=== PATIENT | male | born 1985 | race African-American/Black ===

== ENCOUNTER 2024-01-10 15:12 | Emergency (ER) | payer MEDICAID ==
[~2024-01-10] VITALS: Ht 172.7 cm; Wt 70.0 kg
[2024-01-10 17:04] LABS: *AMPHETAMINES SCREEN URINE NEGATIVE (NEGATIVE); *BARBITURATES SCREEN URINE NEGATIVE (NEGATIVE); *BENZODIAZEPINES SCREEN URINE NEGATIVE (NEGATIVE); *COCAINE SCREEN URINE PRESUMPTIVE POSITIVE (NEGATIVE); METHADONE URINE SCREEN NEGATIVE (NEGATIVE); OPIATES URINE SCREEN NEGATIVE (NEGATIVE)
[2024-01-10 17:05] LABS: CANNABINOID URINE SCREEN PRESUMPTIVE POSITIVE (NEGATIVE); ECSTASY MDMA SCREEN URINE NEGATIVE (NEGATIVE); PHENCYCLIDINE URINE SCREEN NEGATIVE (NEGATIVE)
[2024-01-10 17:15] LABS: BASOPHILS % 0.5 % (0.0-2.0); EOSINOPHILS % 1.8 % (0.0-5.0); HEMATOCRIT. 44.1 % (42.0-52.0); HEMOGLOBIN. 15.2 g/dL (14.0-18.0); LYMPHOCYTES % 28.3 % (20.0-50.0); MEAN CORPUSCULAR HEMOGLOBIN 30.6 pg (28.0-32.0); MEAN CORPUSCULAR HGB CONC 34.4 g/dL (31.0-37.0); MEAN CORPUSCULAR VOLUME 89.1 fL (80.0-94.0); MEAN PLATELET VOLUME 8.3 fl (7.4-10.4); MONOCYTES % 13.7 % (2.0-8.0); NEUTROPHILS % 55.7 % (40.0-76.0); PLATELET 260 x1000/uL (130-400); RED BLOOD CELL COUNT 4.95 mill/uL (4.7-6.1); RED CELL DISTRIBUTION WIDTH 14.5 % (11.6-14.6); WHITE BLOOD COUNT 5.8 x1000/uL (4.5-11.0)
[2024-01-10 17:19] LABS: CHLORIDE 111 mEq/L (98-107); POTASSIUM 4.2 mEq/L (3.5-5.1); SODIUM 143 mEq/L (136-145)
[2024-01-10 17:20] LABS: CARBON DIOXIDE 28 mEq/L (21-32)
[2024-01-10 17:21] LABS: CALCIUM 9.5 mg/dL (8.7-10.4)
[2024-01-10 17:25] LABS: CREATININE 1.2 mg/dL (0.6-1.3)
[2024-01-10 17:26] LABS: GLUCOSE 85 mg/dL (70-105); UREA NITROGEN BLOOD 20 mg/dL (9-23)
[2024-01-10 17:27] LABS: ACETAMINOPHEN < 2 ug/mL (10-30)
[2024-01-10 17:32] LABS: ETHANOL BLOOD < 10 mg/dL (<10)
[2024-01-11] MEDS: HYDROCORTISONE 1% RECTAL CREAM 30GM PR PRN (06:05)
[2024-01-12] MEDS: FLUOXETINE HCL 20MG CAPSULE PO SCH (12:26)
[2024-01-13] MEDS: QUETIAPINE FUMARATE 50MG TABLET PO SCH (00:06)
[2024-02-10 09:18] VITALS: BP 126/66; PULSE 65; RESP 14; TEMP 98.2; O2SAT 97
== END 2024-01-14 18:39 | disposition short-term general hospital (02) ==
LOC: ER 15:12
DX: R45.851 Suicidal ideations (principal); F20.9 Schizophrenia, unspecified
CPT/HCPCS: 80305; 80048; 80307; 80329; 80320; 85025; 36415; 99285; Z7610 ×3; G0480